=== PATIENT | male | born 1975 | race Hispanic/Latino ===

== ENCOUNTER 2017-08-19 15:12 | Emergency (ER) | payer OTHER ==
[~2017-08-19] VITALS: Ht 167.6 cm; Wt 141.2 kg
[2017-08-19 16:52] LABS: ADD MIUA? YES; BILIRUBIN NEGATIVE; BLOOD SMALL; COLOR YELLOW ((YELLOW)); GLUCOSE (STRIP) NEGATIVE; KETONES NEGATIVE; LEUKOCYTES NEGATIVE; NITRITE NEGATIVE; PROTEIN (STRIP) 30; SPECIFIC GRAVITY 1.013 (1.000-1.030); UROBILINOGEN 0.2 MG/DL (0.2-1.0)
[2017-08-19 16:58] LABS: BACTERIA NONE SEEN /HPF; EPITHELIAL CELLS NONE SEEN /HPF; MUCUS NONE SEEN /LPF; UCUL ADDED? NO; WHITE BLOOD CELLS 0-5 /HPF (0-5)
[2017-08-19] MEDS ORDERED: AMOXICILLIN500 MG PO (17:11)
[2017-08-19 18:20] LABS: EOSINOPHIL (%) 0.1 % (0-5); IMMATURE GRANULOCYTE (%) 0.7 % (0.0-0.7); IMMATURE GRANULOCYTE COUNT 0.1 K/uL; INSTRUMENT ABS NEUTROPHIL CT 11.3 K/uL; LYMPHOCYTE COUNT 1.1 K/uL (1.0-2.8); MCH 24.6 PG (29.0-34.0); MCHC 30.7 G/DL (30.0-36.0); MCV 80.2 FL (86-99); MEAN PLAT.VOLUME 11.4 uM^3 (9.0-12.4); NEUTROPHIL (%) 77.4 % (45-76); NEUTROPHIL COUNT 11.3 K/uL (1.8-6.4); PLATELET COUNT 183 K/uL (156-360); RBC DIS.WIDTH-CV 18.5 % (11.8-14.6); RBC DIS.WIDTH-SD 53.1 % (39-53); RED BLOOD COUNT 5.24 M/uL (4.00-5.50); WHITE BLOOD COUNT 14.6 K/uL (4.1-10.2)
[2017-08-19 18:28] LABS: CHLORIDE 101 mEq/L (99-109); POTASSIUM 5.7 mEq/L (3.7-5.4); SODIUM 135 mEq/L (136-147)
[2017-08-19 18:29] LABS: GLUCOSE 101 mg/dL (70-99)
[2017-08-19 18:31] LABS: ANION GAP 15 MEQ/L (2-14)
[2017-08-19 18:33] LABS: GFR ESTIMATE (CALCULATED) > 59 mL/min/
[2017-08-19 18:34] LABS: UREA NITROGEN (BUN) 12 mg/dL (9-23)
[2017-08-19] MEDS ORDERED: TESSALON PERLE100 MG PO (20:04)
[2017-08-19] MEDS ORDERED: VENTOLIN HFA18 GM IH (20:04)
[2017-08-19 20:12] VITALS: BP 122/73
== END 2017-08-19 20:13 | disposition home or self-care (01) ==
LOC: EME 15:12
PROVIDERS: Nurse Practitioner Family
DX: J06.9 Acute upper respiratory infection, unspecified (principal); R31.9 Hematuria, unspecified; H92.03 Otalgia, bilateral; R11.0 Nausea; H93.12 Tinnitus, left ear
CPT/HCPCS: 71020; 80048; 81003; 83605; 85025; 85027; 87502; 87651 90; 99281; 99285; J1885; J7030